=== PATIENT | male | born 1955 | race American Indian/Alaskan Native ===

== ENCOUNTER 2017-02-06 10:58 | Outpatient (CLI) | payer OTHER ==
--- NOTE | 2017-02-06 15:23 | XRay Report ---
Lumbar spine 4 views: History: Back pain. Findings: Normal height of vertebral bodies decrease in height of L3-4, L4-5 L5-S1. Sclerotic adjacent articular surfaces with peripheral osteophytes suggestive of severe degenerative changes. No fracture. Faint soft tissue calcification. Impression: Severe degenerative changes lower lumbar spine .
== END 2017-02-06 10:59 | disposition home or self-care (01) ==
LOC: SPVIMAG 10:58
PROVIDERS: ATTEND Internal Medicine
DX: M47.896 Other spondylosis, lumbar region (principal); M25.78 Osteophyte, vertebrae
CPT/HCPCS: 72110